=== PATIENT | male | born 1935 | race African-American/Black ===

== ENCOUNTER 2016-06-17 23:34 | Emergency (ER) | payer OTHER, MEDICARE ==
[2016-06-17] MEDS ORDERED: ASPIRIN 81 MG TABLET, CHEWABLE PO ONE (23:41)
[2016-06-18 00:21] LABS: ABSOLUTE BASOPHILS # (AUTO) 0.1 10^3/uL (0.0-0.2); ABSOLUTE EOSINOPHILS # (AUTO) 0.1 10^3/uL (0.0-0.6); ABSOLUTE LYMPHOCYTES (AUTO) 0.9 10^3/uL (0.5-4.7); ABSOLUTE MONOCYTES (AUTO) 1.2 10^3/uL (0.1-1.4); BASOPHILS % (AUTO) 0.6 % (0-2); EOSINOPHILS % (AUTO) 1.3 % (0-6); HEMATOCRIT 41.5 % (37.9-51.0); HEMOGLOBIN 13.4 g/dL (13.5-17.0); HGB HCT DIFFERENCE -1.3; LYMPHOCYTES % (AUTO) 9.4 % (13-45); MEAN CORPUSCULAR HEMOGLOBIN 29.7 pg (27.0-33.4); MEAN CORPUSCULAR HGB CONC 32.3 g/dL (32.0-36.0); MEAN CORPUSCULAR VOLUME 92 fl (80-97); MONOCYTES % (AUTO) 12.9 % (3-13); RED BLOOD COUNT 4.52 10^6/uL (4.35-5.55); RED CELL DISTRIBUTION WIDTH 13.1 % (11.5-14.0); SEGMENTED NEUTROPHILS % (AUTO) 75.8 % (42-78); WHITE BLOOD COUNT 9.2 10^3/uL (4.0-10.5)
[2016-06-18 00:31] LABS: PROTHROMBIN TIME 17.4 SEC (11.4-15.4)
[2016-06-18 00:32] LABS: PARTIAL THROMBOPLASTIN TIME 36.5 SEC (23.5-35.8)
[2016-06-18 00:45] LABS: ALANINE AMINOTRANSFERASE 30 U/L (21-72); ALBUMIN 3.7 g/dL (3.5-5.0); ALKALINE PHOSPHATASE 88 U/L (38-126); ANION GAP 11 (5-19); ASPARTATE AMINO TRANSFERASE 28 U/L (17-59); BILIRUBIN,TOTAL 1.7 mg/dL (0.2-1.3); BLOOD UREA NITROGEN 20 mg/dL (7-20); CARBON DIOXIDE 28 mmol/L (22-30); CHLORIDE 103 mmol/L (98-107); CREATINE KINASE 209 U/L (55-170); CREATININE RESULT 1.15 mg/dL (0.52-1.25); GLUCOSE 232 mg/dL (75-110); POTASSIUM 3.9 mmol/L (3.6-5.0); SODIUM 141.6 mmol/L (137-145); TOTAL PROTEIN 6.4 g/dL (6.3-8.2)
[2016-06-18 01:03] LABS: CREATINE KINASE MB 2.29 ng/mL (<4.55)
[2016-06-18 01:04] LABS: TROPONIN I < 0.012 ng/mL
[2016-06-18] MEDS ORDERED: ALBUTEROL SULFATE 0.083% NEB 2.5 MG/3 ML AMPUL NEB ONE ×2 (02:06→04:45)
--- NOTE | 2016-06-18 02:13 | ER Document Report ---
ED Respiratory Problem - General Chief Complaint: Chest Pain > 30 Stated Complaint: CHEST PAIN Time seen by provider: 02:11 Mode of Arrival: Stretcher Information source: Patient TRAVEL OUTSIDE OF THE [place] IN LAST 30 DAYS: No - HPI Patient complains to provider of: Chest pain, Cough, Hurts to breath, Short of breath Onset: This morning Duration: Worse/persistent Quality of pain: Achy Short of Breath: Mild Chest pain/discomfort: Tightness Cough: Nonproductive Associated symptoms: Chest pain/discomfort, Congestion, Cough, Short of breath Similar symptoms previously: No Recently seen / treated by doctor: No Notes: Patient is an 80-year-old male presenting to the emergency room via EMS for chest tightness and difficulty breathing, he's had a nonproductive cough for the past 2 days, no fever, EMS provided patient with albuterol treatment en route and he reports feeling much better, he is a history of diabetes, hypertension and obstructive sleep apnea, he is a former smoker - Related Data Allergies/Adverse Reactions: No Known Allergies Allergy (Unverified 01/19/14 12:32) Home Medications: Current Home Medications Brimonidine Tartrate/Timolol [Combigan 0.2%-0.5% Eye Drops] 1 drop OU DAILY 08/29 [History] Ergocalciferol (Vitamin D2) [Vitamin D2] 50,000 unit PO Q7D 06/18/16 [History] Garlic 1,000 mg PO DAILY 06/18/16 [History] Gsh-3 Cell Defense 2 cap PO DAILY 06/18/16 [History] [place]-3 Fatty Acids/Fish Oil [[place] 3 Fish Oil Softgel] 1 each PO DAILY [History] True Aloe 2 cap PO DAILY 06/18/16 [History] Past Medical History - General Information source: Patient - Social History Smoking Status: Former Smoker Family History: Reviewed & Not Pertinent - Past Medical History Cardiac Medical History: Reports: Hx Hypertension - medicated Denies: Hx Heart Attack Pulmonary Medical History: Denies: Hx Asthma Neurological Medical History: Denies: Hx Cerebrovascular Accident, Hx Seizures GI Medical History: Denies: Hx Hepatitis, Hx Hiatal Hernia, Hx Ulcer Infectious Medical History: Denies: Hx Hepatitis Past Surgical History: Reports: Hx Bowel Surgery. Denies: Hx Open Heart Surgery , Hx Pacemaker Review of Systems - Review of Systems Constitutional: No symptoms reported EENT: No symptoms reported Cardiovascular: See HPI Respiratory: See HPI Gastrointestinal: No symptoms reported Genitourinary: No symptoms reported Male Genitourinary: No symptoms reported Musculoskeletal: No symptoms reported Skin: No symptoms reported Hematologic/Lymphatic: No symptoms reported Neurological/Psychological: No symptoms reported -: Yes All other systems reviewed and negative Physical Exam - Vital signs Vitals: Pulse Ox 95 06/17/16 23:42 Interpretation: Normal - General General appearance: Appears well, Alert - HEENT Head: Normocephalic, Atraumatic Eyes: Normal Pupils: PERRL - Respiratory Respiratory status: No respiratory distress Chest status: Nontender Breath sounds: Wheezing Chest palpation: Normal - Cardiovascular Rhythm: Regular Heart sounds: Normal auscultation Murmur: No - Abdominal Inspection: Normal Distension: No distension Bowel sounds: Normal Tenderness: Nontender Organomegaly: No organomegaly - Back Back: Normal, Nontender - Extremities General upper extremity: Normal inspection, Nontender, Normal color, Normal ROM , Normal temperature General lower extremity: Normal inspection, Nontender, Normal color, Normal ROM , Normal temperature, Normal weight bearing. No: Kyle's sign - Neurological Neuro grossly intact: Yes Cognition: Normal Orientation: AAOx4 [place] Coma Scale Eye Opening: Spontaneous [place] Coma Scale Verbal: Oriented [place] Coma Scale Motor: Obeys Commands Xiomara Coma Scale Total: 15 Speech: Normal Motor strength normal: LUE, RUE, LLE, RLE Sensory: Normal - Psychological Associated symptoms: Normal affect, Normal mood - Skin Skin Temperature: Warm Skin Moisture: Dry Skin Color: Normal Course - Re-evaluation Re-evalutation: 06/18/16 03:56 Patient resting comfortably, symptoms have not returned since being in the emergency room, his lungs are clear to auscultation, a second set of cardiac enzymes is currently being drawn and sent, if negative will likely discharge patient home with instructions for follow-up as his symptoms appear to be more related to respiratory issues and cardiac 06/18/16 04:45 Patient reports feeling much better, no further symptoms, he does have a very mild wheeze on exhalation, and additional breathing treatment has been ordered for him, he will be discharged after this was administered with an albuterol inhaler and instructions for follow-up, advised to return if symptoms worsen, patient's cardiac enzymes 2 are unremarkable - Vital Signs Vital signs: Temp Pulse Resp BP Pulse Ox 98.3 F 90 18 150/83 H 93 06/17/16 23:52 06/17/16 23:52 06/18/16 04:01 06/18/16 04:01 06/18/16 04:01 - Laboratory Result Diagrams: 06/18/16 00:06 06/18/16 00:06 Laboratory results interpreted by me: 06/18/16 06/18/16 06/18/16 00:06 00:06 00:06 Hgb 13.4 L Plt Count 145 L Lymphocytes % 9.4 L PT 17.4 H APTT 36.5 H Glucose 232 H Total Bilirubin 1.7 H Creatine Kinase 209 H - Diagnostic Test Radiology reviewed: Image reviewed, Reports reviewed - EKG Interpretation by Me EKG shows normal: Sinus rhythm Rate: Normal Rhythm: NSR Discharge - Discharge Clinical Impression: Reactive airway disease Qualifiers: Asthma severity: mild intermittent Asthma complication type: with acute exacerbation Qualified Code(s): J45.21 - Mild intermittent asthma with (acute) exacerbation Condition: Stable Disposition: HOME, SELF-CARE Instructions: Reactive Airway Disease ([facility]), Chest Wall Pain ([facility]), Chest Pain of Unclear Cause ([facility]), Chronic Obstructive Lung Disease ([facility]) Additional Instructions: Follow up with your primary care provider in one to 2 days. Return to the emergency room immediately if symptoms worsen or any additional concerns.
[2016-06-18 05:06] VITALS: BP 147/82
[2016-06-18] MEDS ORDERED: ALBUTEROL SULFATE HFA (90 MCG/PUFF) 8 GM MDI (1 MDI/ER DISP) IH SCH (06:00)
--- NOTE | 2016-06-18 09:23 | EKG REPORT ---
SEVERITY:- ABNORMAL ECG - SINUS RHYTHM LEFT ANTERIOR FASCICULAR BLOCK NONSPECIFIC T ABNORMALITIES, LATERAL LEADS : Confirmed by: Will Barnes 18-Jun-2016 09:22:42
== END 2016-06-18 05:15 | disposition home or self-care (01) ==
LOC: ER 23:34
DX: J45.21 Mild intermittent asthma with (acute) exacerbation (principal); R07.9 Chest pain, unspecified; R05 Cough; R06.02 Shortness of breath; Z87.891 Personal history of nicotine dependence; Z79.899 Other long term (current) drug therapy
CPT/HCPCS: 36415; 71010; 80053; 82550; 82553; 84484; 85025; 85610; 85730; 93005; 93010; 94640; 99285

== ENCOUNTER → 2016-06-22 | Outpatient (CLI) | payer MEDICARE, OTHER ==
[~2016-06-22] MED LIST: REGADENOSON INJ 0.4 MG/5 ML DISP.SYRIN IV ONE
--- NOTE | 2016-06-24 11:49 | DRAGON STRESS TEST REPORT ---
Intravenous Lexiscan Cardiolite stress test using single photon emmision computerized tomography. Date of procedure: 06/22/2016 Ordering Provider: Dr. Negin Zabala. Indication: Dyspnea on exertion, and preoperative cardiac risk assessment. Coronary risk factors: Age, diabetes mellitus, and hypertension Resting EKG: Sinus Rhythm. Poor R wave leads V1 to V6. Nonspecific IVCD. Stress EKG: No changes of ischemia. The patient had no chest pain or discomfort, and there were no arrhythmias seen. Reason for termination: Protocol. Conclusions: Normal EKG and hemodynamic response to IV Lexiscan. Nuclear data: At rest the patient was given 13.33 millicuries of technetium 99m sestamibi injected intravenously. As per protocol rest non gated SPECT images were obtained. Subsequently the patient was given intravenous Lexiscan at a dose of 0.4 mg in 5 mL intravenously, followed by flush with normal saline. Subsequently the stress dose of 44.1 millicuries of technetium 99m sestamibi was injected intravenously. As per protocol stress gated images were obtained. Nuclear interpretation: Review of images showed that bowel contamination artifact, especially of the inferior wall rest images. There is a perfusion defect in the distal posterior lateral wall, and mid and basal inferior wall only in the rest images. This is considered as an artifact since these areas had normal perfusion in the stress images. The rest of the segments of the myocardium had normal perfusion at rest , and normal perfusion post stress with IV Lexiscan. All segments of the myocardium had normal motion, contraction, and thickening by gated study. T. I D. ratio was normal at 0.98. Computer read rest, and stress left ventricular ejection fraction were 53 %, and 51 %, respectively. Visually both the stress and rest ejection fractions were normal, and greater than 55%. Conclusion: 1. There is no scintigraphic evidence of Lexiscan induced myocardial ischemia. 2. There is no scintigraphic evidence of myocardial infarction/scar. Recommendations: Aggressive risk factor modification, and treating the underlying co- morbidities. MTDD
== END ==
LOC: RAD 07:54
PROVIDERS: ATTEND Specialist
DX: Z01.810 Encounter for preprocedural cardiovascular examination (principal); R06.00 Dyspnea, unspecified; I26.99 Other pulmonary embolism without acute cor pulmonale; I82.409 Acute embolism and thrombosis of unspecified deep veins of unspecified lower extremity
CPT/HCPCS: 93017; 78452; A9500; J2785; Q9969

== ENCOUNTER → 2016-06-24 | Outpatient (CLI) | payer MEDICARE, OTHER | LOC: RAD 07:48 | PROVIDERS: ATTEND Specialist | DX: R06.00 Dyspnea, unspecified (principal); I26.99 Other pulmonary embolism without acute cor pulmonale; I82.409 Acute embolism and thrombosis of unspecified deep veins of unspecified lower extremity | CPT/HCPCS: 71275; 93970 ==

== ENCOUNTER 2017-12-14 17:38 | Inpatient (IN) | payer MEDICARE, OTHER ==
--- NOTE | 2017-12-14 18:21 | ER Document Report ---
ED Fever - General Mode of Arrival: Medic Information source: Patient, Emergency Med Personnel TRAVEL OUTSIDE OF THE [place] IN LAST 30 DAYS: No <KEAGAN GOMES - Last Filed: 12/14/17 20:58> <PATY STEEL - Last Filed: 12/15/17 00:21> - General Chief Complaint: Fever Stated Complaint: FEVER Time Seen by Provider: 12/14/17 18:09 Notes: 82 y.o male presents to the ED via EMS s/p sudden onset of chills with a headache. Patient reports that he was at home working in his shop which is indoors when he started to have chills and was shivering. His family had called EMS for another family member and the medical personnel checked him out as well. EMS reports a fever with a temperature of 102.7, a BGL of 142, and a reading of 93% on the Pulse Oximeter en route. EMS gave 650mg of Tylenol en route. They also report that the pt was SOB in addition to his fever but the patient denies any trouble breathing or wheezing. Pt also denies any abd pain, rashes, pain to his face or ears, dysuria, dark colored urine or any trouble with urination; he has no further complaints at this time and reports that his headache has since relieved. Pt denies starting any new medications recently. Pt has DM for which he takes medication. He also reports taking Coumadin to home regularly. [facility]. He also sees Dr. Esposito and Dr. Rain locally but states that he hasnt seen those doctors recently. (KEAGAN GOMES) - Related Data Allergies/Adverse Reactions: No Known Allergies Allergy (Unverified 01/19/14 12:32) Past Medical History - General Information source: Patient - Social History Smoking Status: Former Smoker Family History: Reviewed & Not Pertinent - Past Medical History Cardiac Medical History: Reports: Hx Hypertension - medicated Endocrine Medical History: Reports: Hx Diabetes Mellitus Type 2 Past Surgical History: Reports: Hx Bowel Surgery <KEAGAN GOMES - Last Filed: 12/14/17 20:58> Review of Systems - Review of Systems Constitutional: See HPI, Chills - shivering, sudden onset, Fever - 102.7 per EMS EENT: See HPI, Other - Denies: facial pain. denies: Ear pain Respiratory: See HPI. denies: Short of breath, Wheezing Gastrointestinal: See HPI. denies: Abdominal pain Genitourinary: See HPI. denies: Dysuria Skin: See HPI. denies: Rash Neurological/Psychological: See HPI, Headaches <KEAGAN GOMES - Last Filed: 12/14/17 20:58> Physical Exam <KEAGAN GOMES - Last Filed: 12/14/17 20:58> <PATY STEEL - Last Filed: 12/15/17 00:21> - Vital signs Vitals: Temp Pulse Resp BP Pulse Ox 102.4 F H 92 22 H 134/74 H 95 12/14/17 17:42 12/14/17 17:42 12/14/17 17:42 12/14/17 17:42 12/14/17 17:42 - Notes Notes: Physical Exam: General: Alert, appears well. Febrile. HEENT: Normocephalic. Atraumatic. PERRL. Extraocular movements intact. Oropharynx clear. Neck: Supple. Non-tender. Respiratory: No respiratory distress. Clear and equal breath sounds bilaterally. Cardiovascular: Regular rate and rhythm. Abdominal: Normal Inspection. Non-tender. No distension. Normal Bowel Sounds. Back: Non-tender. No deformity or step off. Extremities: Moves all four extremities. Upper extremities: Normal inspection. Normal ROM. Lower extremities: Normal inspection. No edema. Normal ROM. Neurological: Normal cognition. AAOx3. Normal speech. Psychological: Normal affect. Normal Mood. Skin: Febrile. Dry. Normal color. (KEAGAN GOMES) Course - Laboratory Result Diagrams: 12/14/17 18:18 12/14/17 18:18 <KEAGAN GOMES - Last Filed: 12/14/17 20:58> - Laboratory Result Diagrams: 12/14/17 18:18 12/14/17 18:18 <PATY STEEL - Last Filed: 12/15/17 00:21> - Re-evaluation Re-evalutation: 12/14/17 19:23 Pt is updated and agrees with plan. 12/14/17 20:59 Rechecked pt. He still is without any complaints. (KEAGAN GOMES) Patient is an 82-year-old male who had shaking chills and some difficulty breathing just prior to arrival. Patient denies any cough, chest pain, further symptoms here in the emergency department. Chest x-ray is concerning for a left infiltrate. Patient also has nitrite positive urine with bacteria. Patient was feeling well. Received fluids and antibiotics. Blood and urine culture sent. Patient was ambulated with pulse ox and became very dyspneic, dropping his oxygen saturation to 84%. Patient does have an elevated lactate and leukocytosis, concerning for SIRS. Patient will be admitted to the hospital service. Patient and family are agreeable to this plan. Stable at the time of admission. (PATY STEEL) - Vital Signs Vital signs: Temp Pulse Resp BP Pulse Ox 101.2 F H 92 24 H 138/83 H 93 12/14/17 23:04 12/14/17 17:42 12/14/17 23:04 12/14/17 23:04 12/14/17 23:04 - Laboratory Laboratory results interpreted by me: 12/14/17 12/14/17 12/14/17 18:18 18:18 18:18 WBC 16.2 H Seg Neuts % (Manual) 87 H Lymphocytes % (Manual) 4 L Abs Neuts (Manual) 14.1 H PT Lactic Acid 3.0 H ALT 20 L Urine Nitrite Urine Urobilinogen Ur Leukocyte Esterase 12/14/17 12/14/17 18:50 19:14 WBC Seg Neuts % (Manual) Lymphocytes % (Manual) Abs Neuts (Manual) PT 25.2 H Lactic Acid ALT Urine Nitrite POSITIVE H Urine Urobilinogen 2.0 H Ur Leukocyte Esterase TRACE H Critical Care Note - Critical Care Note Total time excluding time spent on procedures (mins): 35 - Evaluation and management of hypoxia, fever, diagnosis ofSIRS, multiple re-evaluations, coordination of admission <PATY STEEL - Last Filed: 12/15/17 00:21> Discharge <KEAGAN GOMES - Last Filed: 12/14/17 20:58> - Discharge Admitting Provider: Hospitalist - [facility] Unit Admitted: Telemetry <PATY STEEL - Last Filed: 12/15/17 00:21> - Discharge Clinical Impression: Hypoxia, SIRS (systemic inflammatory response syndrome) Pneumonia Qualifiers: Pneumonia type: due to unspecified organism Laterality: left Lung location: lower lobe of lung Qualified Code(s): J18.1 - Lobar pneumonia, unspecified organism Condition: Stable Disposition: ADMITTED INPATIENT Scribe Attestation: 12/15/17 00:15 I personally performed the services described in the documentation, reviewed and edited the documentation which was dictated to the scribe in my presence, and it accurately records my words and actions. (PATY STEEL) Scribe Documentation - Scribe Written by Georgiae:: Unique Crum 12/14/17 1834 acting as scribe for :: Lucina <KEAGAN GOMES - Last Filed: 12/14/17 20:58>
[2017-12-14 18:39] LABS: HEMATOCRIT 42.4 % (37.9-51.0); HEMOGLOBIN 13.6 g/dL (13.5-17.0); MEAN CORPUSCULAR HEMOGLOBIN 29.8 pg (27.0-33.4); MEAN CORPUSCULAR HGB CONC 32.1 g/dL (32.0-36.0); MEAN CORPUSCULAR VOLUME 93 fl (80-97); PLATELET COUNT 177 10^3/uL (150-450); RED BLOOD COUNT 4.56 10^6/uL (4.35-5.55); RED CELL DISTRIBUTION WIDTH 13.4 % (11.5-14.0); VENOUS BLOOD BASE EXCESS 1.3 mmol/L; VENOUS BLOOD HCO3 28.1 mmol/L (20-32); VENOUS BLOOD PCO2 52.9 mmHg (35-63); VENOUS BLOOD PH 7.34 (7.30-7.42); WHITE BLOOD COUNT 16.2 10^3/uL (4.0-10.5)
[2017-12-14 18:51] LABS: ALANINE AMINOTRANSFERASE 20 U/L (21-72); ALBUMIN 3.8 g/dL (3.5-5.0); ALKALINE PHOSPHATASE 75 U/L (38-126); ANION GAP 12 (5-19); ASPARTATE AMINO TRANSFERASE 27 U/L (17-59); BILIRUBIN,DIRECT 0.3 mg/dL (0.0-0.4); BILIRUBIN,TOTAL 1.1 mg/dL (0.2-1.3); BLOOD UREA NITROGEN 14 mg/dL (7-20); CALCIUM 9.4 mg/dL (8.4-10.2); CARBON DIOXIDE 25 mmol/L (22-30); CHLORIDE 107 mmol/L (98-107); GLUCOSE 110 mg/dL (75-110); POTASSIUM 4.8 mmol/L (3.6-5.0); SODIUM 144.3 mmol/L (137-145); TOTAL PROTEIN 6.9 g/dL (6.3-8.2)
--- NOTE | 2017-12-14 18:53 | RADIOLOGY REPORT (SQ) ---
EXAM DESCRIPTION: CHEST 2 VIEWS COMPLETED DATE/TIME: 12/14/2017 6:39 pm REASON FOR STUDY: fever, sob COMPARISON: March 2012 EXAM PARAMETERS: NUMBER OF VIEWS: two views TECHNIQUE: Digital Frontal and Lateral radiographic views of the chest acquired. RADIATION DOSE: NA LIMITATIONS: none FINDINGS: LUNGS AND PLEURA: There is some ill-defined increased density in the left lung base which could represent a developing infiltrate or atelectatic changes. MEDIASTINUM AND HILAR STRUCTURES: No masses or contour abnormalities. HEART AND VASCULAR STRUCTURES: Heart normal size. No evidence for failure. BONES: No acute findings. HARDWARE: None in the chest. OTHER: Again there is elevation of the right hemidiaphragm. IMPRESSION: Ill-defined left basilar density. Other findings as noted above TECHNICAL DOCUMENTATION: JOB ID: [id number]- All Rights Reserved Reading location - IP/workstation name: [email or web address]
[2017-12-14 18:57] LABS: ABSOLUTE LYMPHOCYTES# (MANUAL) 0.6 10^3/uL (0.5-4.7); ABSOLUTE MONOCYTES # (MANUAL) 1.3 10^3/uL (0.1-1.4); ABSOLUTE NEUTROPHILS# (MANUAL) 14.1 10^3/uL (1.7-8.2); BASOPHILS % (MANUAL) 0 % (0-2); EOSINOPHILS % (MANUAL) 1 % (0-6); LYMPHOCYTES % (MANUAL) 4 % (13-45); MONOCYTES % (MANUAL) 8 % (3-13); PLATELET COMMENT ADEQUATE; SEGMENTED NEUTROPHILS % (MAN) 87 % (42-78); TOTAL CELLS COUNTED 100; TOXIC GRANULATION SLIGHT
[2017-12-14] MEDS ORDERED: CEFTRIAXONE 1 GM/D5W RTU 1 GM/50 ML RTUPB IV ONE (18:59)
[2017-12-14] MEDS ORDERED: NORMAL SALINE 500 ML IV ONE (18:59)
[2017-12-14] MEDS ORDERED: AZITHROMYCIN INJ 500 MG VIAL IV ONE (19:00)
[2017-12-14 19:06] LABS: APPEARANCE,URINE SLIGHTLY-CLOUDY; BILIRUBIN,URINE NEGATIVE (NEGATIVE); COLOR,URINE YELLOW; GLUCOSE, URINE NEGATIVE (NEGATIVE); KETONES,URINE NEGATIVE (NEGATIVE); LEUKOCYTE ESTERASE,URINE TRACE (NEGATIVE); NITRITE,URINE POSITIVE (NEGATIVE); PROTEIN,URINE NEGATIVE (NEGATIVE); URINE SPECIFIC GRAVITY 1.015
[2017-12-14 19:34] LABS: INTERNATIONAL RATION (INR) 2.16; PROTHROMBIN TIME 25.2 SEC (11.4-15.4)
[2017-12-14] MEDS ORDERED: CEFTRIAXONE INJ 1000 MG VIAL IV ONE (19:51)
--- NOTE | 2017-12-14 22:33 | EKG REPORT ---
SEVERITY:- ABNORMAL ECG - SINUS RHYTHM BLOCKED APC LEFT ANTERIOR FASCICULAR BLOCK NONSPECIFIC T ABNORMALITIES, LATERAL LEADS : Confirmed by: Will Barnes 14-Dec-2017 22:32:45
[2017-12-14] MEDS ORDERED: IPRATROPIUM/ALBUTEROL 0.5-2.5 MG/3 ML AMPUL NEB PRN (22:34)
[2017-12-14] MEDS ORDERED: ACETAMINOPHEN 325 MG TABLET PO PRN (22:34)
--- NOTE | 2017-12-14 22:57 | PDOC H&P ---
History of Present Illness Admission Date/PCP: 12/14/17 22:29 OLLIE FARRELL MD [place] Patient complains of: Fever History of Present Illness: MILLI OCHOA is a 82 year old male with past medical history of pulmonary embolism on Coumadin, hypertension was brought to the emergency room by family with complaint of fever and shortness of breath. Patient had a sudden onset of chills and fever with headache. Patient's temperature 102F and his oxygen saturation was 93% on room air as per EMS. Patient reported shortness of breath on exertion however denies any chest pain or cough or wheezing. Patient denied any abdomen pain or nausea vomiting or urinary symptoms. On arrival to emergency room he was febrile with temperature of 102.4F along with oxygen saturation of 95% on room air. His chest x-ray shows ill-defined left basilar opacity concerning for pneumonia. Urinalysis shows UTI with positive nitrite and WBCs. His white count was 16,000. Rest of his lab is unremarkable. His INR is therapeutic 2.1. Patient was given IV antibiotic and was referred to hospital service for admission. Past Medical History Cardiac Medical History: Reports: Hypertension - medicated, Pulmonary Embolism Denies: Myocardial Infarction Pulmonary Medical History: Denies: Asthma Neurological Medical History: Denies: Seizures Endocrine Medical History: Reports: Diabetes Mellitus Type 2 GI Medical History: Denies: Hepatitis, Hiatal Hernia Hematology: Denies: Anemia, Sickle Cell Disease Past Surgical History Past Surgical History: Denies: Pacemaker Social History Information Source: Patient Smoking Status: Former Smoker Frequency of Alcohol Use: None Hx Recreational Drug Use: No Family History Family History: Reviewed & Not Pertinent Parental Family History Reviewed: No Children Family History Reviewed: No Sibling(s) Family History Reviewed.: No Medication/Allergy Home Medications: Felodipine [Felodipine ER] 10 mg PO DAILY 11/06/13 Warfarin Sodium 1 - 2 tab PO QHS 11/06/13 Brimonidine Tartrate/Timolol [Combigan 0.2%-0.5% Eye Drops] 1 drop OU DAILY 08/29 Ergocalciferol (Vitamin D2) [Vitamin D2] 50,000 unit PO Q7D 06/18/16 Garlic 1,000 mg PO DAILY 06/18/16 Gsh-3 Cell Defense 2 cap PO DAILY 06/18/16 [place]-3 Fatty Acids/Fish Oil [[place] 3 Fish Oil Softgel] 1 each PO DAILY True Aloe 2 cap PO DAILY 06/18/16 Allergies/Adverse Reactions: No Known Allergies Allergy (Unverified 01/19/14 12:32) Review of Systems All systems: reviewed and no additional remarkable complaints except as stated Physical Exam Vital Signs: Temp Pulse Resp BP Pulse Ox 102.4 F H 92 24 H 144/71 H 92 12/14/17 17:42 12/14/17 17:42 12/14/17 21:01 12/14/17 21:01 12/14/17 21:01 General appearance: PRESENT: no acute distress, cooperative, well-developed, well-nourished Head exam: PRESENT: atraumatic, normocephalic Eye exam: ABSENT: conjunctival injection, conjunctiva pink, conjunctiva pale, EOMI, nystagmus, periorbital swelling, PERRLA, scleral icterus, other Ear exam: ABSENT: bleeding, drainage, normal external ear exam, TM's normal bilaterally, other Mouth exam: PRESENT: moist Neck exam: ABSENT: carotid bruit, JVD Respiratory exam: PRESENT: clear to auscultation suresh. ABSENT: crackles, rales, rhonchi, wheezes Cardiovascular exam: PRESENT: RRR, +S1, +S2. ABSENT: gallop, rubs, systolic murmur GI/Abdominal exam: PRESENT: normal bowel sounds, soft. ABSENT: organolmegaly, tenderness Rectal exam: PRESENT: deferred Gentrourinary exam: ABSENT: ecchymosis, erythema, lacerations, lesions, scrotal swelling, testicular tenderness, urethral discharge, indwelling catheter, other Extremities exam: ABSENT: calf tenderness, clubbing, full ROM, joint swelling, pedal edema, tenderness, +1 edema, +2 edema, other Musculoskeletal exam: PRESENT: ambulatory Neurological exam: PRESENT: alert, awake, oriented to person, oriented to place , oriented to time, oriented to situation, CN II-XII grossly intact. ABSENT: motor sensory deficit Psychiatric exam: PRESENT: appropriate affect, normal mood. ABSENT: homicidal ideation, suicidal ideation Focused psych exam: ABSENT: catatonic, delusional, euphoric, flight of ideas, internal stimuli, paranoid, pressured speech, psychomotor agitation, restlessness, other Skin exam: PRESENT: dry, intact, warm. ABSENT: cyanosis, rash Results Laboratory Results: All labs reviewed. Impressions: Chest X-Ray 12/14/17 18:20 IMPRESSION: Ill-defined left basilar density. Other findings as noted above Status: Image reviewed by me Assessment & Plan - Diagnosis (1) Pneumonia Qualifiers: Pneumonia type: due to unspecified organism Laterality: left Lung location: lower lobe of lung Qualified Code(s): J18.1 - Lobar pneumonia, unspecified organism Is this a current diagnosis for this admission?: Yes Plan: Patient with fever and shortness of breath who has left basilar pneumonia and mild hypoxia. Patient has elevated lactic acid but hemodynamically stable. Will admit patient as inpatient for IV antibiotic and start IV ceftriaxone and Zithromax. Will continue nebs as needed along with oxygen. Will follow blood culture. (2) UTI (urinary tract infection) Qualifiers: Urinary tract infection type: site unspecified Hematuria presence: without hematuria Qualified Code(s): N39.0 - Urinary tract infection, site not specified Is this a current diagnosis for this admission?: Yes Plan: Patient is on ceftriaxone. Will follow up urine culture. (3) History of pulmonary embolism Is this a current diagnosis for this admission?: No Plan: Patient is on Coumadin with therapeutic INR. Will resume patient's home dose Coumadin. (4) Hypertension Is this a current diagnosis for this admission?: No Plan: Blood pressure stable. Will resume current home medication. - Time Time Spent: 50 to 70 Minutes - Inpatient Certification Based on my medical assessment, after consideration of the patient's comorbidities, presenting symptoms, or acuity I expect that the services needed warrant INPATIENT care.: Yes I certify that my determination is in accordance with my understanding of Medicare's requirements for reasonable and necessary INPATIENT services [42 CFR 412.3e].: Yes Medical Necessity: Need for IV Antibiotics
[2017-12-14] MEDS: GUAIFENESIN 600 MG TABLET.SA PO SCH (23:43)
[2017-12-14] MEDS: IPRATROPIUM/ALBUTEROL 0.5-2.5 MG/3 ML AMPUL NEB SCH (23:47)
[2017-12-15] MEDS: IPRATROPIUM/ALBUTEROL 0.5-2.5 MG/3 ML AMPUL NEB SCH ×4 (02:12→19:30)
[2017-12-15 05:48] LABS: HEMATOCRIT 42.1 % (37.9-51.0); HEMOGLOBIN 13.6 g/dL (13.5-17.0); MEAN CORPUSCULAR HEMOGLOBIN 29.9 pg (27.0-33.4); MEAN CORPUSCULAR HGB CONC 32.3 g/dL (32.0-36.0); MEAN CORPUSCULAR VOLUME 93 fl (80-97); PLATELET COUNT 160 10^3/uL (150-450); RED BLOOD COUNT 4.55 10^6/uL (4.35-5.55); RED CELL DISTRIBUTION WIDTH 13.5 % (11.5-14.0); WHITE BLOOD COUNT 18.4 10^3/uL (4.0-10.5)
[2017-12-15 06:09] LABS: ABSOLUTE LYMPHOCYTES# (MANUAL) 0.9 10^3/uL (0.5-4.7); ABSOLUTE MONOCYTES # (MANUAL) 0.2 10^3/uL (0.1-1.4); ABSOLUTE NEUTROPHILS# (MANUAL) 17.3 10^3/uL (1.7-8.2); BAND NEUTROPHILS % (MANUAL) 3 % (3-5); BASOPHILS % (MANUAL) 0 % (0-2); EOSINOPHILS % (MANUAL) 0 % (0-6); LYMPHOCYTES % (MANUAL) 5 % (13-45); MONOCYTES % (MANUAL) 1 % (3-13); PLATELET COMMENT ADEQUATE; RBC MORPHOLOGY COMMENT NORMO-CYTIC/CHROMIC; SEGMENTED NEUTROPHILS % (MAN) 91 % (42-78); TOTAL CELLS COUNTED 100
[2017-12-15] MEDS ORDERED: BRIMONIDINE TARTRATE 0.2% OPH SOLN 5 ML OU SCH (10:00)
[2017-12-15] MEDS ORDERED: TIMOLOL MALEATE 0.5% OPH SOLN 5 ML OU SCH (10:00)
[2017-12-15] MEDS ORDERED: CEFTRIAXONE 1 GM/D5W RTU 1 GM/50 ML RTUPB IV SCH (10:00)
[2017-12-15] MEDS: AMLODIPINE BESYLATE 5 MG TABLET PO SCH (10:20)
[2017-12-15] MEDS: GUAIFENESIN 600 MG TABLET.SA PO SCH ×2 (10:20→21:07)
[2017-12-15] MEDS: AZITHROMYCIN 500 MG in DEXTROSE 5%-WATER 250 ML IV SCH (10:46)
--- NOTE | 2017-12-15 13:48 | PDOC PROGRESS REPORT ---
Subjective Progress Note for:: 12/15/17 Subjective:: 82-year-old male with history of pulmonary embolism on Coumadin who presented overnight with fever to 102.4 and found to have basilar pneumonia. He was admitted and started on Rocephin and Zithromax. He is doing better at this time , still with low-grade fever but improved. Denies cough or hemoptysis. Denies chills at this time. No orthopnea or PND. Reason For Visit: PNEUMONIA Physical Exam Vital Signs: Temp Pulse Resp BP Pulse Ox 100.9 F H 88 16 113/64 92 12/15/17 11:41 12/15/17 11:41 12/15/17 11:41 12/15/17 11:41 12/15/17 11:41 Pulse Oximeter Continuous Start: 12/14/17 22: 34 Freq: RTQ4 Status: Active Document 12/15/17 08:13 [facility] [place] (Rec: 12/15/17 08:22 [facility] [place] [id number]) Pulse Oximetry Assessment Oxygen Saturation (92-100) 94 Oxygen Delivery Method Room Air Fraction of Inspired Oxygen (FIO2) 21 Equipment Usage Equipment in Use Continuous SpO2 Machine # N 1 Intake & Output 12/14/17 12/15/17 12/16/17 06:59 06:59 06:59 Intake Total 118 Balance 118 Weight 114.3 kg GENERAL: Well-developed, no acute distress HEENT: Normocephalic/atraumatic NECK supple, no JVD CARDIOVASCULAR: RRR, normal S1-S2 LUNGS: Crackles left base, no wheezing/rales ABDOMEN: Soft, NT, NL bowel sounds EXTREMITIES: No edema, clubbing, cyanosis NEUROLOGICAL: Alert, oriented x 3, no acute weakness Results Laboratory Results: 12/15/17 05:27 12/14/17 12/15/17 22:30 05:27 WBC 18.4 H RBC 4.55 Hgb 13.6 Hct 42.1 MCV 93 MCH 29.9 MCHC 32.3 RDW 13.5 Plt Count 160 Seg Neutrophils % Not Reportable Lymphocytes % Not Reportable Monocytes % Not Reportable Eosinophils % Not Reportable Basophils % Not Reportable Absolute Neutrophils Not Reportable Absolute Lymphocytes Not Reportable Absolute Monocytes Not Reportable Absolute Eosinophils Not Reportable Absolute Basophils Not Reportable Lactic Acid 2.5 H Impressions: Chest X-Ray 12/14/17 18:20 IMPRESSION: Ill-defined left basilar density. Other findings as noted above Assessment & Plan - Plan Summary Plan Summary: (1) Pneumonia Qualifiers: Pneumonia type: due to unspecified organism Laterality: left Lung location: lower lobe of lung Qualified Code(s): J18.1 - Lobar pneumonia, unspecified organism Is this a current diagnosis for this admission?: Yes Plan: Continue with IV antibiotic and IV ceftriaxone and Zithromax. Patient still with leukocytosis. We will follow-up CBC in a.m. Consider broadening antibiotics tomorrow if persistent leukocytosis or rising white blood cells. Will continue nebs as needed along with oxygen. Continue to follow blood culture. Lactic acid still elevated at 2.9--will restart IV fluid and follow-up lactic acid level in a.m. (2) UTI (urinary tract infection) Qualifiers: Urinary tract infection type: site unspecified Hematuria presence: without hematuria Qualified Code(s): N39.0 - Urinary tract infection, site not specified Is this a current diagnosis for this admission?: Yes Plan: Patient is on ceftriaxone. Follow up urine culture. (3) History of pulmonary embolism Is this a current diagnosis for this admission?: No Plan: Patient is on Coumadin with therapeutic INR. Will continue patient's home dose Coumadin. (4) Hypertension Is this a current diagnosis for this admission?: No Plan: Blood pressure stable. Continue medication.
[2017-12-15 14:52] LABS: HEMATOCRIT 43.2 % (37.9-51.0); HEMOGLOBIN 13.7 g/dL (13.5-17.0); MEAN CORPUSCULAR HEMOGLOBIN 29.6 pg (27.0-33.4); MEAN CORPUSCULAR HGB CONC 31.8 g/dL (32.0-36.0); MEAN CORPUSCULAR VOLUME 93 fl (80-97); PLATELET COUNT 112 10^3/uL (150-450); RED BLOOD COUNT 4.65 10^6/uL (4.35-5.55); RED CELL DISTRIBUTION WIDTH 13.6 % (11.5-14.0); WHITE BLOOD COUNT 20.2 10^3/uL (4.0-10.5)
[2017-12-15 15:39] LABS: ABSOLUTE LYMPHOCYTES# (MANUAL) 0.8 10^3/uL (0.5-4.7); ABSOLUTE MONOCYTES # (MANUAL) 1.6 10^3/uL (0.1-1.4); ABSOLUTE NEUTROPHILS# (MANUAL) 17.8 10^3/uL (1.7-8.2); BASOPHILS % (MANUAL) 0 % (0-2); EOSINOPHILS % (MANUAL) 0 % (0-6); LYMPHOCYTES % (MANUAL) 4 % (13-45); MONOCYTES % (MANUAL) 8 % (3-13); PLATELET COMMENT ADEQUATE; SEGMENTED NEUTROPHILS % (MAN) 88 % (42-78); TOTAL CELLS COUNTED 100; TOXIC VACUOLATION PRESENT
[2017-12-15] MEDS: NORMAL SALINE 1000 ML 1,000 ML IV PRN (18:30)
[2017-12-15] MEDS ORDERED: WARFARIN SODIUM 2 MG TABLET PO SCH (22:00)
[2017-12-15] MEDS ORDERED: LATANOPROST 0.005% OPH SOLN 2.5 ML OU SCH (22:00)
[2017-12-15] MEDS ORDERED: CEFTRIAXONE SODIUM 1,000 MG in DEXTROSE 5%-WATER 50 ML IV SCH (22:00)
[2017-12-15] MEDS ORDERED: WARFARIN SODIUM PO SCH (22:00)
[2017-12-16] MEDS: IPRATROPIUM/ALBUTEROL 0.5-2.5 MG/3 ML AMPUL NEB SCH ×3 (01:06→14:17)
[2017-12-16] MEDS: NORMAL SALINE 1000 ML 1,000 ML IV PRN (05:32)
[2017-12-16 05:43] LABS: ABSOLUTE EOSINOPHILS # (AUTO) 0.2 10^3/uL (0.0-0.6); ABSOLUTE LYMPHOCYTES (AUTO) 1.1 10^3/uL (0.5-4.7); ABSOLUTE MONOCYTES (AUTO) 1.4 10^3/uL (0.1-1.4); ABSOLUTE NEUT (AUTO) 11.6 10^3/uL (1.7-8.2); BASOPHILS % (AUTO) 0.3 % (0-2); EOSINOPHILS % (AUTO) 1.1 % (0-6); HEMATOCRIT 39.5 % (37.9-51.0); HEMOGLOBIN 12.8 g/dL (13.5-17.0); LYMPHOCYTES % (AUTO) 7.4 % (13-45); MEAN CORPUSCULAR HEMOGLOBIN 30.2 pg (27.0-33.4); MEAN CORPUSCULAR HGB CONC 32.4 g/dL (32.0-36.0); MEAN CORPUSCULAR VOLUME 93 fl (80-97); MONOCYTES % (AUTO) 9.6 % (3-13); PLATELET COUNT 153 10^3/uL (150-450); RED BLOOD COUNT 4.24 10^6/uL (4.35-5.55); RED CELL DISTRIBUTION WIDTH 13.5 % (11.5-14.0); SEGMENTED NEUTROPHILS % (AUTO) 81.6 % (42-78); TOTAL CELLS COUNTED % (AUTO) 100 %; WHITE BLOOD COUNT 14.2 10^3/uL (4.0-10.5)
[2017-12-16 06:08] LABS: ANION GAP 9 (5-19); BLOOD UREA NITROGEN 11 mg/dL (7-20); CALCIUM 8.8 mg/dL (8.4-10.2); CARBON DIOXIDE 26 mmol/L (22-30); CHLORIDE 111 mmol/L (98-107); GLUCOSE 116 mg/dL (75-110); POTASSIUM 4.2 mmol/L (3.6-5.0); SODIUM 146.2 mmol/L (137-145)
[2017-12-16] MEDS ORDERED: PIPERACILLIN/TAZOBACTAM 3.375 GM VIAL IV SCH (09:15)
[2017-12-16] MEDS: GUAIFENESIN 600 MG TABLET.SA PO SCH (09:41)
[2017-12-16] MEDS: AMLODIPINE BESYLATE 5 MG TABLET PO SCH (09:42)
[2017-12-16] MEDS: AZITHROMYCIN 500 MG in DEXTROSE 5%-WATER 250 ML IV SCH (09:42)
[2017-12-16] MEDS ORDERED: CEFTRIAXONE 1 GM/D5W RTU 1 GM/50 ML RTUPB IV SCH (10:00)
[2017-12-16] MEDS ORDERED: PIPERACILLIN SODIUM/TAZOBACTAM 3.375 GM in NORMAL SALINE 100 ML IV SCH (12:00)
--- NOTE | 2017-12-16 17:37 | PDOC DISCHARGE SUMMARY ---
General - Admit/Disc Date/PCP Admission Date/Primary Care Provider: 12/14/17 22:29 OLLIE FARRELL MD Discharge Date: 12/16/17 - Discharge Diagnosis (1) Pneumonia Is this a current diagnosis for this admission?: Yes (2) UTI (urinary tract infection) Is this a current diagnosis for this admission?: Yes - Additional Information Resuscitation Status: Full Code Prescriptions: Levofloxacin 750 mg PO DAILY 5 Days #5 tablet Home Medications: Felodipine [Felodipine ER] 10 mg PO DAILY 12/15/17 Latanoprost [Xalatan 0.005% Oph Soln 2.5 ml] 1 drop OU QHS 12/15/17 Warfarin Sodium [Coumadin 2 mg Tablet] 2 mg PO QHS 12/15/17 Acetaminophen [Tylenol 325 mg Tablet] 650 mg PO Q4HP PRN tablet 12/16/17 Levofloxacin 750 mg PO DAILY 5 Days #5 tablet 12/16/17 History of Present Illness History of Present Illness: MILLI OCHOA is a 82 year old male with a past medical history of pulmonary embolism and Coumadin and hypertension who initially presented with shortness of breath. He was noted to have left sided pneumonia. Patient was started on azithromycin and ceftriaxone. Patient was also admitted and treated for a urinary tract infection. Blood cultures came back negative. Urine culture grew E. coli which is pansensitive. Blood blood culture was negative. Patient clinically improved. He was weaned off nasal cannula and was saturating well on room air. He will be discharged on Levaquin. Physical Exam Vital Signs: Temp Pulse Resp BP Pulse Ox 99.3 F 68 16 132/65 H 96 12/16/17 11:03 12/16/17 14:19 12/16/17 14:19 12/16/17 11:03 12/16/17 16:00 Pulse Oximeter Continuous Start: 12/14/17 22: 34 Freq: RTQ4 Status: Active Document 12/16/17 16:00 [facility] (Rec: 12/16/17 16:32 [facility] [id number]) Pulse Oximetry Assessment Oxygen Saturation (92-100) 96 Oxygen Delivery Method Room Air Fraction of Inspired Oxygen (FIO2) 21 Equipment Usage Equipment in Use Continuous SpO2 Machine # 1 Intake & Output 12/15/17 12/16/17 12/17/17 06:59 06:59 06:59 Intake Total 118 3751 Output Total 2275 Balance 118 1476 Weight 251 lb 15.814 oz 236 lb 1.841 oz General appearance: PRESENT: no acute distress, well-developed, well-nourished Head exam: PRESENT: atraumatic, normocephalic Eye exam: PRESENT: conjunctiva pink, EOMI, PERRLA. ABSENT: scleral icterus Neck exam: ABSENT: carotid bruit, JVD, lymphadenopathy, thyromegaly Respiratory exam: PRESENT: clear to auscultation suresh. ABSENT: rales, rhonchi, wheezes Cardiovascular exam: PRESENT: RRR. ABSENT: diastolic murmur, rubs, systolic murmur Pulses: PRESENT: normal dorsalis pedis pul Vascular exam: PRESENT: normal capillary refill Rectal exam: PRESENT: deferred Extremities exam: PRESENT: calf tenderness Neurological exam: PRESENT: alert, awake, oriented to person, oriented to place , oriented to time, oriented to situation, CN II-XII grossly intact. ABSENT: motor sensory deficit Results Laboratory Results: 12/16/17 05:30 12/16/17 05:30 12/16/17 12/16/17 12/16/17 05:30 05:30 05:30 WBC 14.2 H RBC 4.24 L Hgb 12.8 L Hct 39.5 MCV 93 MCH 30.2 MCHC 32.4 RDW 13.5 Plt Count 153 Seg Neutrophils % 81.6 H Lymphocytes % 7.4 L Monocytes % 9.6 Eosinophils % 1.1 Basophils % 0.3 Absolute Neutrophils 11.6 H Absolute Lymphocytes 1.1 Absolute Monocytes 1.4 Absolute Eosinophils 0.2 Absolute Basophils 0.0 Sodium 146.2 H Potassium 4.2 Chloride 111 H Carbon Dioxide 26 Anion Gap 9 BUN 11 Creatinine 0.96 Est GFR ( Amer) > 60 Est GFR (Non-Af Amer) > 60 Glucose 116 H Lactic Acid 0.9 Calcium 8.8 Impressions: Chest X-Ray 12/14/17 18:20 IMPRESSION: Ill-defined left basilar density. Other findings as noted above Qualifiers - * PATIENT BEING DISCHARGED WITH ANY OF THE FOLLOWING DIAGNOSIS: No
[2017-12-16 18:33] VITALS: BP 115/63
[2017-12-16] MEDS ORDERED: CEFTRIAXONE SODIUM 1,000 MG in NORMAL SALINE 50 ML IV SCH (22:00)
== END 2017-12-16 18:30 | disposition home or self-care (01) | DRG 194 ==
LOC: ER 17:38 → EH 22:29 → 4N 12-15 00:41
PROVIDERS: ADMIT Internal Medicine; ATTEND Internal Medicine
DX: J18.9 Pneumonia, unspecified organism (principal); N39.0 Urinary tract infection, site not specified; I10 Essential (primary) hypertension; E11.8 Type 2 diabetes mellitus with unspecified complications; B96.20 Unspecified Escherichia coli [E. coli] as the cause of diseases classified elsewhere; Z79.01 Long term (current) use of anticoagulants; Z79.84 Long term (current) use of oral hypoglycemic drugs; Z79.899 Other long term (current) drug therapy; Z86.711 Personal history of pulmonary embolism
CPT/HCPCS: 36415; 71046; 80048; 80053; 81001; 82803; 83605; 84484; 85025; 85610; 87040; 87086; 87088; 87186; 93005; 93010; 94640; 94762; J0456; J0696; J3490; J7030; J7040; J7060; J7620

== ENCOUNTER → 2019-07-26 | Outpatient (CLI) | payer OTHER ==
--- NOTE | 2019-07-26 13:39 | RADIOLOGY REPORT (SQ) ---
EXAM DESCRIPTION: CT CHEST WITHOUT COMPLETED DATE/TIME: 07/26/2019 1:16 pm REASON FOR STUDY: J98.4 OTHER DISORDERS OF LUNG J98.4 OTHER DISORDERS OF LUNG COMPARISON: 06/24/2016 TECHNIQUE: CT scan performed of the chest without intravenous contrast. Images reviewed with lung, soft tissue and bone windows. Reconstructed coronal and sagittal MPR images reviewed. All images st ored on PACS. All CT scanners at this facility use dose modulation, iterative reconstruction, and/or weight based d osing when appropriate to reduce radiation dose to as low as reasonably achievable (ALARA). [facility]: Dose Right [facility]: CareDose [facility]: Dose Right [facility]: Teradose 4D [facility]: Therapeutic Systems RADIATION DOSE: CT Rad equipment meets quality standard of care and radiation dose reduction techniq ues were employed. CTDIvol: 19.4 mGy. DLP: 736 mGy-cm. mGy. LIMITATIONS: No technical limitations. FINDINGS: LUNGS AND PLEURA: Unchanged chronic right middle lobe volume loss. No focal airspace dise ase. No pleural effusion. Hypoventilatory change within the right lung base. No discrete nodules o r masses. HILAR AND MEDIASTINAL STRUCTURES: No identified masses or abnormal nodes. No obvious aneurysm. HEART AND VASCULAR STRUCTURES: Normal heart size. Scattered coronary atherosclerosis. No pericardia l effusion. UPPER ABDOMEN: Unchanged elevation of the right hemidiaphragm. No acute findings. Mild diffuse thic kening of the adrenal glands, stable. THYROID AND OTHER SOFT TISSUES: No masses. No adenopathy. BONES: No acute bony abnormality. No suspicious osseous lesions. Multilevel thoracic spondylosis HARDWARE: None in the chest. OTHER: No other significant findings. IMPRESSION: 1. Stable elevation of the right hemidiaphragm with chronic right middle lobe volume lo ss. 2. No other evidence of acute intrathoracic process. TECHNICAL DOCUMENTATION: JOB ID: [id number] Quality ID # [id number]: Final reports with documentation of one or more dose reduction techniques (e.g., Au tomated exposure control, adjustment of the mA and/or kV according to patient size, use of iterative reconstruction technique) 2010 [employer]- All Rights Reserved Reading location - IP/workstation name: [email or web address]
== END ==
LOC: RAD 12:50
PROVIDERS: ATTEND Internal Medicine Pulmonary Disease
DX: J98.4 Other disorders of lung (principal)
CPT/HCPCS: 71250